=== PATIENT | female | born 1985 | race African-American/Black ===

== ENCOUNTER 2021-04-28 05:08 | Emergency (ER) | payer OTHER ==
[~2021-04-28] VITALS: Ht 160 cm; Wt 56.7 kg
[2021-04-28] MEDS ORDERED: NORCO5 PO (05:50)
[2021-04-28] MEDS ORDERED: MOBIC15 MG PO (05:50)
[2021-04-28 06:18] VITALS: BP 108/75
== END 2021-04-28 06:18 | disposition home or self-care (01) ==
LOC: ER 05:08
DX: S16.1XXA Strain of muscle, fascia and tendon at neck level, initial encounter (principal); Z98.890 Other specified postprocedural states; X58.XXXA Exposure to other specified factors, initial encounter; Y93.89 Activity, other specified; Y92.89 Other specified places as the place of occurrence of the external cause; Y99.8 Other external cause status

== ENCOUNTER 2021-08-10 19:42 | Emergency (ER) | payer OTHER ==
[~2021-08-10] VITALS: Ht 160 cm; Wt 59.0 kg
[~2021-08-10 19:42] MED LIST: MOBIC15 MG PO; NORCO5 PO
[2021-08-10] MEDS ORDERED: IBUPROFEN 800800 MG PO (22:02)
[2021-08-10] MEDS ORDERED: LIDOCAINE15 GM TOP (22:02)
[2021-08-10] MEDS ORDERED: CEPHALEXIN500 MG PO (22:02)
[2021-08-10 22:11] VITALS: BP 128/72
== END 2021-08-10 22:11 | disposition home or self-care (01) ==
LOC: ER 19:42
DX: S00.93XA Contusion of unspecified part of head, initial encounter (principal); Y08.89XA Assault by other specified means, initial encounter; Y93.89 Activity, other specified; Y92.89 Other specified places as the place of occurrence of the external cause; Y99.8 Other external cause status